=== PATIENT | male | born 2000 | race Caucasian/White ===

== ENCOUNTER 2019-10-13 01:41 | Outpatient (CLI) | payer OTHER, SELFPAY ==
[2019-10-13 16:16] LABS: SARS-CoV-2 RNA PCR Negative
== END 2019-10-13 01:42 | disposition home or self-care (01) ==
LOC: ANHCOVIDDT 01:41
PROVIDERS: PCP Emergency Medicine; Visit Provider Otolaryngology
DX: Z01.812 Encounter for preprocedural laboratory examination (principal); Z11.59 Encounter for screening for other viral diseases
CPT/HCPCS: 87635; C9803; U0003

== ENCOUNTER 2019-10-15 01:02 | Day surgery (SDC) | payer OTHER, SELFPAY ==
[2019-10-09 12:48] VITALS: BMI 20.6
--- NOTE | 2019-10-14 11:16 | PM.IMHP ---
H&P: HPI History of Present Illness Date/Time: 10/14/19 11:16 Chief complaint: nasal septal deviation Narrative: Patient is a very pleasant 19-year-old male with a past medical history including bilateral nasal congestion much worse/noticeable at night. He reports noticing this problem ever since about the age of 16 which she associates having his wisdom teeth removed, but also coincides with when he played football and wrestled. there are no provoking or palliation factors. The patient has tried Flonase without palliation in his aforementioned symptoms. He also reports having approximately 1 sinus infection per year which corresponds to an upper respiratory infection usually in winter. Review of Systems Constitutional: Constitutional: Denies fatigue, Denies fever(s) and Denies lethargy Eyes: Eyes: Denies blurry vision and Denies change in vision ENT: Reports as per HPI Cardiovascular: Cardiovascular: Denies chest pain Respiratory: Respiratory: Denies cough Endocrine: Endocrine: Denies fatigue Hematologic/Lymphatic: Hematologic/Lymphatic: Denies easy bleeding, Denies easy bruising and Denies lymphadenopathy Allergic/Immunologic: Allergic/Immunologic: Denies seasonal [facility]hea [facility] Social History Social History Smoking status: Never smoker Spiritual care concerns: No Meds Home Medications and Allergies Home Medications Medication Instructions Recorded Confirmed Type No Home Medications 10/09/19 10/09/19 History Allergies Allergy/AdvReac Type Severity Reaction Status Date / Time amoxicillin Allergy Intermediate rash Verified 10/09/19 12:49 clavulanic acid Allergy Intermediate rash Verified 10/09/19 12:49 Penicillins Allergy Intermediate rash and Verified 10/09/19 12:49 hives Exam Const: General: cooperative, healthy appearing, comfortable, well developed and alert HENMT: Head: normal to inspection, normocephalic and atraumatic Ears: hearing grossly normal bilaterally, external ears normal, TM's normal bilaterally and EAC's normal General nose exam: Normal external nose present, Normal nares present, No nasal polyps present, Normal nasal mucous membranes and turbinates present, abnormal septum and Other nasal findings present ( bilateral inferior turbinate hypertrophy, deviated nasal septum) Face and sinus: normal facial exam Mouth: Yes Normal oral and palatal mucosa present, Yes lip normal, Yes tongue normal, Yes oropharynx normal and Yes moist mucous membranes Teeth and gingiva: dentition normal and gingiva normal Throat: posterior oropharynx normal, tonsils normal and uvula midline Eyes: General: appearance normal, both eyes and all related structures Periorbital: periorbital findings normal Eyelids: eyelids normal Conjunctivae: conjunctivae normal Sclera: sclerae normal Neck: Neck: normal visual inspection, full ROM and no lymphadenopathy Thyroid: thyroid normal Lymphatic: no lymphadenopathy noted Resp: Effort & Inspection: normal respiratory effort and able to speak in complete sentences Cardio: Jugular venous distension: no JVD Neuro: Cranial nerves: Yes CN's II-XII intact bilaterally Assessment and Plan Assessment and plan (1) Nasal obstruction: Code(s): J34.89 - Other specified disorders of nose and nasal sinuses Status: Acute Assessment and Plan: OR for endoscopic assisted septoplasty and bilateral inferior turbinate reduction Risks and benefits were explained in great detail with the patient including risk of septal perforation, the need for further surgery, inferior turbinate regrowth, significant bleeding, and . The patient voiced understanding of these risks and agreed to the aforementioned surgical procedures (2) Hypertrophy of both inferior nasal turbinates: Code(s): J34.3 - Hypertrophy of nasal turbinates Status: Acute (3) Nasal septal deviation: Code(s): J34.2 - Deviated nasal septum Status: Acute
[2019-10-15] VITALS (7 sets, daily range): BP systolic 100–143; BP diastolic 49–80; PULSE 48–65; RESP 8–18; TEMP 36.1; O2SAT 96–100
--- NOTE | 2019-10-15 06:41 | WPDANESEPPF ---
Anes - Initial Pre Proc Eval Procedure: Operation Date: 10/15/19 07:30 Proposed Procedures p Septoplasty - Ganesh Amaral MD s Bilateral Inferior Turbinate Reduction - Ganesh Amaral MD Date/Time: 10/15/19 06:41 Surgeon: Ganesh Amaral MD Pre Op Diagnosis: nasal septal deviation Patient Data Age: 19 Gender: M Height: 6 ft 3 in Weight: 74.84 kg Allergies Allergy/AdvReac Type Severity Reaction Status Date / Time amoxicillin Allergy Intermediate rash Verified 10/09/19 12:49 clavulanic acid Allergy Intermediate rash Verified 10/09/19 12:49 Penicillins Allergy Intermediate rash and Verified 10/09/19 12:49 hives Home Medications Medication Instructions Recorded Confirmed Type No Home Medications 10/09/19 10/09/19 History Patient hx anesthesia problems: none Family hx anesthesia problems: none [facility] [place] Social History Social History Smoking status: Never smoker Spiritual care concerns: No Anes - Eval Final PreProcedure Day of Procedure 10/15/19 06:41 Patient weight: normal Heart: regular rate and rhythm Lungs: clear to auscultation Airway: Mallampati scale class 1 Neurological: alert and oriented Last oral intake: >/= 8 hours ASA classification: I Emergent: no Anesthetic plan: proceed Anesthesia type and monitoring: general ETT and standard monitoring Informed Consent: The patient's anesthetic plan and its attendant risks and benefits were discussed with the patient/family/POA. Questions were solicited and answers provided to the satisfaction of the patient/family/POA.
--- NOTE | 2019-10-15 06:51 | WPDHPUPDATE1 ---
History and Physical Update Update Date/Time: 10/15/19 06:51 History and Physical has been reviewed, including an updated exam of the patient. There are NO changes in the patient's condition. Risks, benefits, and alternatives have been discussed and questions answered. Patient agrees to proceed with procedure.
[2019-10-15] MEDS: ACETAMINOPHEN 500 MG TABLET 1000 MG PO (06:57)
[2019-10-15] MEDS: LACTATED RINGERS 1,000 ML 30 ML IV CONT (06:57)
[2019-10-15] MEDS: LIDO 1%/EPINEPHRINE 1:100,000 20 ML VIAL INFILTRATE (07:37)
[2019-10-15] MEDS: CLINDAMYCIN 900 MG/NS 50 ML 900 MG/50 ML PIGGYBACK 50 MG IVPB (07:50)
--- NOTE | 2019-10-15 08:59 | SUR.PHASEI ---
[id number] - Dr. Amaral at bedside assessing pt.
--- NOTE | 2019-10-15 10:21 | P.OP_ITS ---
Procedure Note - Detailed Date of procedure: 10/15/19 Pre-op diagnosis: nasal septal deviation Surgeon: Operative note Date of procedure: 10/15/2019 Attending surgeon: Ganesh Amaral M.D Anesthesia: General Patient: Jose R Gustafson Patient's 2000 Preoperative diagnosis: 1. Septal Deviation 2. Nasal obstruction 3. Inferior turbinate hypertrophy Postoperative diagnosis: Same Procedures performed: 1. Nasal endoscopy 2. Endoscopic assisted septoplasty 2. Endoscopic assisted inferior turbinate submucosal resection 3. Outfracture of inferior turbinates Indications for procedure: Patient is a 19-year-old male with a past medical history significant for nasal obstruction right worse than left as well as inferior turbinate hypertrophy. The patient presents today for the aforementioned procedures. The risks and benefits were explained in great detail to the patient voiced understanding as well as signed appropriate consent forms. Details of the procedure: The patient was correctly identified and consent was verified in the preoperative holding area. The patient was then brought to the operating room and a time-out was performed. General anesthesia was induced and an endotracheal tube was secured in the patient's airway and taped to the left lower lip. The patient was then prepped and draped for the aforementioned procedures. 10 cc of 1% lidocaine with 1 100,000 parts epinephrine was injected in the submucoperichondrial plane of the nasal septum and anterior inferior tur binates. a 0 degree 4 mm endoscope was utilized. A [place] incision was made in the left anterior nasal septum. A submucoperichondrial dissection was performed on both sides of the nasal septum using a combination of [place] elevator and 7 [place] suction. the deviated nasal septum was removed with a combination of osteotome, Attila Lutz forceps, endoscopic double-action scissors, Nena forceps. Nasal septum was then sutured anteriorly using a 5 plain gut suture in an interrupted fashion. There were 2 perforations noted and these were quilted across each other using a 4 0 plain gut suture. A 15 blade was utilized to make incisions in the anterior inferior turbinates. A submucosal resection was performed bilaterally using a 2 mm inferior turbinate blade on the microdebrider. The inferior turbinates were then well reduced and outfractured using a [place] elevator. Lu splints were placed bilaterally and sutured anteriorly using a 3 0 interrupted nylon suture. The patient tolerated the procedure well and care was turned over to Anesthesiology. Complications: Bilateral nasal septal perforations closed with quilting suture Blood loss: 10 cc Follow up: 1 week Ganesh Amaral MD
== END 2019-10-15 10:35 | disposition home or self-care (01) ==
PROVIDERS: PCP Emergency Medicine; Visit Provider Otolaryngology
PROC: (CPT 30520; principal; 2019-10-15 07:30)
PROC: (CPT 30140; 2019-10-15 07:30)
DX: J34.2 Deviated nasal septum (principal); J34.3 Hypertrophy of nasal turbinates
CPT/HCPCS: 30140; 30520; A9270; J0330; J1100; J2250; J2405; J2704; J3010; J7120